=== PATIENT | male | born 2000 | race Caucasian/White ===

== ENCOUNTER 2024-11-09 14:56 | Emergency (ER) | payer SELFPAY ==
[2024-11-09 14:57] VITALS: BP 163/125; PULSE 110; RESP 18; TEMP 36.8; O2SAT 98; BMI 43.0
--- NOTE | 2024-11-09 15:09 | EX.ED.DYSGE1 ---
HPI History of Present Illness Chief Complaint: Nausea/Vomiting/Diarrhea Detail of Chief Complaint: Nausea, vomiting, diarrhea Informant: patient Narrative Narrative: Patient presents to the emergency department with complaint of vomiting and diarrhea. States that he started with an illness 5 days ago in the middle of the night. Initially developed fever subjectively as well as headache and even his eyes hurt. He then developed severe diarrhea and vomiting. Patient has been taking an antidiarrheal medicine [id number]. He continues to have up to 3 watery stools per day. Continues to have dry heaves. Denies urinary symptoms. Has had intermittent abdominal pain and cramping. Denies sick contacts. Denies recent travel. Denies eating any undercooked foods. Patient has no medical history. No prior abdominal surgeries. PFSH PFSH Home Medications ?Medication ?Instructions ?Recorded ?Last Taken ?Type ondansetron 4 mg disintegrating 4 mg PO Q8H PRN PRN Nausea #10 tabs 11/09/24 Unknown Rx tablet Allergy/AdvReac Type Severity Reaction Status Date / Time No Known Allergies Allergy Verified 11/09/24 14:59 ROS ROS ED Review of Systems ROS Unobtainable: other Constitutional Constitutional ED: Reports lethargy; Denies chills, fever(s), sweats or weight loss Eyes Eyes: Denies blurry vision, change in vision or diplopia ENT ENT ED: Denies rhinorrhea or sore throat Cardiovascular Cardiovascular: Denies chest pain, orthopnea or racing heartbeat Respiratory/Chest Respiratory/Chest: Denies cough, dyspnea, dyspnea on exertion, orthopnea or sputum Gastrointestinal Gastrointestinal: Reports abdominal pain, diarrhea, nausea and vomiting Genitourinary Genitourinary ED: Denies dysuria, hematuria or urinary frequency Musculoskeletal Musculoskeletal: Denies arthralgias, back pain, myalgias or neck pain Integumentary Denies abscess, Abrasions or rash Neurologic Neurologic: Reports headache(s); Denies weakness Psychiatric Psychiatric: Denies anxiety, depression or suicidal thoughts Endocrine Endocrinology: Denies polydipsia, polyphagia or polyuria Hematologic/Lymphatic Hematologic/Lymphatic: Denies easy bleeding, easy bruising or lymphadenopathy Allergic/Immunologic Allergic/Immunologic ED: Denies mouth swelling, tongue swelling or urticaria EXAM Physical Exam Const Vital Signs: 11/09/24 14:57 Temperature 98.3 F Temperature Source Oral Pulse Rate 110 H Respiratory Rate 18 Blood Pressure 163/125 H Blood Pressure Mean 137 Pulse Ox 98 Oxygen Delivery Method Room Air Positive well nourished and well developed General Appearance ED: well developed and NAD HEENT Reports TM's clear and moist mucous membranes normocephalic and atraumatic; Negative for trauma or tenderness Tympanic Membrane ED: Yes TM's clear Eyes PERRL and EOMs intact bilaterally General Eye ED: Negative for pale conjunctiva or scleral icterus Neck no lymphadenopathy, supple and no JVD General: Negative for tenderness Chest Wall inspection of chest normal and palpation of chest normal Chest: Negative for tenderness Resp normal respiratory effort and clear to auscultation bilaterally Effort and Inspection: Negative for respiratory distress or pain with movement Auscultation: Negative for rhonchi, wheezes or diminished lung sounds Cardio regular rate, regular rhythm, S1 normal heart sound, S2 normal heart sound and no murmurs Peripheral Pulses: pulses 2+ throughout GI normal to inspection, nondistended, normoactive bowel sounds, soft to palpation, non-distended and no masses GI Narrative: No significant tenderness. There is no rebound, rigidity, or peritoneal signs. No masses palpated. Back/Spine no CVA tenderness and no thoracic nor lumbar tenderness Extremity normal to inspection General Extremety ED: Negative for edema General Extremity: Negative for edema Neuro oriented x3, CN's II-XII intact bilaterally, no sensory deficits noted and gait normal Sensorium / Orientation: awake, alert, oriented to person, oriented to place and oriented to time Motor Exam: strength 5/5 throughout and strength abnormal Psych mental status grossly normal Skin no rashes or lesions noted and no wounds MDM MDM MDM Narrative Medical decision making narrative: Patient presents with vomiting and diarrhea as well as headache and bodyaches and subjective fever. Looks well clinically. Suspect likely a viral gastroenteritis as the etiology of his symptoms. IV line established. He was given a liter normal send fluid bolus. CBC with differential obtained showed a white count of 5.1 with hemoglobin 15 and platelet count of 142. Chemistries were unremarkable. BUN 13 and creatinine 1.07. CO2 is slightly depressed at 18.9. LFTs were normal. Lipase was normal. Patient did receive a dose of Zofran IV during his stay as well. I did order stool for enteric pathogens however he was unable to give a sample. I will write for a second liter of fluid normal saline. He will be discharged to home. I will write him a prescription for Zofran and he is advised to use Imodium as needed for diarrhea. Lab Data Attestation: I reviewed the patient's lab results. Labs: Laboratory Results - last 24 hr 11/09/24 15:22 WBC 5.1 RBC 5.36 Hgb 15.0 Hct 44.3 MCV 82.6 MCH 28.0 MCHC 33.9 RDW Std Deviation 41.2 RDW Coeff of Kiesha 13.6 Plt Count 142 L MPV 10.8 Immature Gran % (Auto) 0.200 Neut % (Auto) 75.7 H Lymph % (Auto) 18.2 L Bertie % (Auto) 5.5 Eos % (Auto) 0.2 Baso % (Auto) 0.2 Absolute Neuts (auto) 3.9 Absolute Lymphs (auto) 0.93 Nucleated RBC % 0 Sodium 137 Potassium 3.6 Chloride 102 Carbon Dioxide 18.9 L Anion Gap 16 H BUN 13 Creatinine 1.07 Estim Creat Clear Calc 149.65 Est GFR (MDRD) Non-Af 98 BUN/Creatinine Ratio 11.8 Glucose 117 H Calcium 9.2 Magnesium 1.9 Total Bilirubin 0.48 AST 35 ALT 43 Alkaline Phosphatase 69 Total Protein 7.3 Albumin 4.2 Globulin 3.1 Albumin/Globulin Ratio 1.4 Lipase 32 Discharge Plan Triage Chief Complaint: Nausea/Vomiting/Diarrhea ED Provider: Antonio Miramontes Dx/Rx/DC Orders Clinical Impression: Viral gastroenteritis Instructions: ED Gastroenteritis, Viral (Adult) Prescriptions: New ondansetron 4 mg tablet,disintegrating 4 mg PO Q8H PRN PRN (Reason: Nausea) Qty: 10 0RF Primary Care Provider: Care Physician,No Primary Referrals: Rick Vazquez MD [[facility] - [facility]] - 3-5 Days Care Physician,No Primary [Primary Care Provider] - Activity Restrictions/Additional Instructions: You may take [id number] Imodium as needed for continued diarrhea Print Language: Bahraini Disposition Disposition: Home, Self Care
[2024-11-09] MEDS: 0.9% Normal Saline (1000mL) 1,000 ML 999 ML IV ×2 (15:21→17:01)
[2024-11-09 15:29] LABS: Hematocrit 44.3 % (40-54); Hemoglobin 15.0 g/dL (13.0-16.5); Immature Granulocytes Count 0.010 X10^3/uL (0.0-0.0); Mean Corp Hgb Conc 33.9 g/dL (32-36); Mean Corpuscular Volume 82.6 fL (80-94); Mean Platelet Vol. 10.8 fl (6.2-12.0); NRBC Flagged by Analyzer 0 % (0-5); Platelet Count 142 K/mm3 (150-450); RBC Distribution Width CV 13.6 % (11.6-14.6); RBC Distribution Width SD 41.2 fl (35.1-43.9); Red Blood Count 5.36 M/mm3 (4.6-6.2); White Blood Count 5.1 K/mm3 (4.4-11.0)
[2024-11-09 16:01] LABS: AST(SGOT) 35 U/L (<=37); Alanine Aminotransfer ALT/SGPT 43 U/L (<=46); Albumin, Serum 4.2 g/dL (3.5-5.0); Alkaline Phosphatase 69 U/L (40-129); Anion Gap 16 (5-15); BUN 13 mg/dL (4-19); BUN/Creat Ratio 11.8 RATIO (10-20); Calcium,Total 9.2 mg/dL (7.6-11.0); Carbon Dioxide 18.9 mmol/L (21.0-32.0); Chloride 102 mmol/L (98-108); Estimated Creatinine Clearance 149.65 ml/min (50-250); Globulin 3.1 g/dL (2.2-4.2); Glucose 117 mg/dL (70-99); Lipase 32 U/L (13-75); Magnesium 1.9 mg/dL (1.5-2.2); Potassium 3.6 mmol/L (3.3-5.1)
[2024-11-09 16:25] VITALS: BP 136/81; PULSE 90; RESP 22; TEMP 36.8; O2SAT 100
[2024-11-09 16:57] VITALS: BP 127/78; PULSE 87
== END 2024-11-09 17:59 | disposition home or self-care (01) ==
PROVIDERS: Emergency Provider Emergency Medicine; Visit Provider Emergency Medicine
DX: A08.4 Viral intestinal infection, unspecified (principal)
CPT/HCPCS: 80053; 83690; 83735; 85025; 96361; 96374; 99283; A4216; J2405